=== PATIENT | female | born 1985 | race Two or more races ===

== ENCOUNTER 2022-12-11 19:23 | Emergency (ER) | payer OTHER, SELFPAY ==
--- NOTE | ~2022-12-11 | US_ITS ---
EXAMINATION: US ABDOMEN LIMITED CLINICAL INFORMATION: Epigastric/right upper quadrant tenderness. Elevated lipase/amylase.. COMPARISON: None available. TECHNIQUE: Real-time imaging of the right upper quadrant abdominal viscera. FINDINGS: PANCREAS: Normal. LIVER: The liver is normal in size. The liver contour is normal. There is diffuse increased liver parenchymal echogenicity, consistent with hepatic steatosis. No focal hepatic lesion. There is no intrahepatic biliary duct dilatation seen. GALLBLADDER: Normal. The gallbladder is physiologically distended without evidence of stones, sludge, polyps, wall thickening or pericholecystic fluid. COMMON BILE DUCT: Normal in caliber measuring 0.3 cm in diameter. RIGHT KIDNEY: Normal. No hydronephrosis. No renal calculi or focal parenchymal lesions. The kidney measures 9.6 cm in maximum dimension. FREE FLUID: None. US/US abdomen limited IMPRESSION: Hepatic steatosis. Otherwise unremarkable right upper quadrant ultrasound.
[2022-12-11 20:40] VITALS: BP 126/84; PULSE 67; RESP 18; TEMP 36.6; O2SAT 100; BMI 32.6
--- NOTE | 2022-12-11 20:41 | ED.ABDPAIN ---
HPI - Abdominal Pain General Chief Complaint: Nausea/Vomiting/Diarrhea <DARRIUS Hargrove - Last Filed: 12/11/22 20:48> Stated Complaint: abd pain/ vomiting <DARRIUS Hargrove - Last Filed: 12/11/22 20:48> Time Seen by Provider: 12/12/22 01:32 <DARRIUS Hargrove - Last Filed: 12/11/22 20:48> Source: patient <Tai Cuevas MD - Last Filed: 12/12/22 02:00> Mode of arrival: ambulatory <Tai Cuevas MD - Last Filed: 12/12/22 02:00> Limitations: no limitations <Tai Cuevas MD - Last Filed: 12/12/22 02:00> History of Present Illness HPI narrative: 37-year-old female presents with upper abdominal pain. The symptoms have been going on for least 2 months. She does have a history of IBS. Patient describes symptoms as moderate most the time but more severe over the past week. There is no clear relieving or exacerbating features. Can be associated with nausea but no vomiting. She denies any diarrhea constipation. She denies any urinary frequency, urgency or dysuria. She denies . She denies any vaginal bleeding or discharge. Currently, pain is controlled. She described as crampy and achy in nature. Which showed. Department for follow-up. She has a follow-up appointment with consultation for GI on Wednesday <Tai Cuevas MD - Last Filed: 12/12/22 02:00> Related Data Home Medications: Previous Rx's Medication Instructions Recorded dicyclomine 20 mg tablet 20 mg PO QID PRN abdominal 12/12/22 discomfort #14 tabs ondansetron 4 mg disintegrating 4 mg PO Q8H PRN nausea and 12/12/22 tablet vomiting #10 tabs <DARRIUS Hargrove - Last Filed: 12/11/22 20:48> Allergies/Adverse Reactions: Allergies Allergy/AdvReac Type Severity Reaction Status Date / Time No Known Allergies Allergy Verified 12/11/22 20:45 [NO KNOWN ALLERGIES] tramadol AdvReac Unknown nausea and Verified 08/24/18 00:00 vomiting <DARRIUS Hargrove Last Filed: 12/11/22 20:48> [facility] Social History Social History: Social History Advance Directives: No Advance Directives Information Provided: No <DARRIUS Hargrove - Last Filed: 12/11/22 20:48> Physical Exam ED Vital Signs: Vital Signs - 24 hr 12/11/22 20:40 12/12/22 01:19 Temperature 97.8 F 97.9 F Pulse Rate 67 73 Respiratory Rate 18 16 Blood Pressure 126/84 116/60 Pulse Oximetry 100 99 Oxygen Delivery Method Room Air Room Air BMI result Body Mass Index 32.6 <DARRIUS Hargrove - Last Filed: 12/11/22 20:48> Vital Signs - 24 hr 12/11/22 20:40 12/12/22 01:19 Temperature 97.8 F 97.9 F Pulse Rate 67 73 Respiratory Rate 18 16 Blood Pressure 126/84 116/60 Pulse Oximetry 100 99 Oxygen Delivery Method Room Air Room Air BMI result Body Mass Index 32.6 <Tai Cuevas MD - Last Filed: 12/12/22 02:00> GEN: Well developed, no acute distress, alert, oriented HEENT: Normocephalic, atraumatic, normal external ears, nose appears normal, no oropharyngeal edema or exudates Eyes: Normal to appearance Neck: Supple, no lymphadenopathy Respiratory: Talks in complete sentences, no respiratory distress, clear to auscultation bilaterally Cardiovascular: Regular rate and rhythm, no murmurs rubs or gallops Abdomen: Soft, nontender, nondistended, no guarding, no rebound Back: No CVA tenderness Extremities: No clubbing cyanosis or edema Neurologic: No focal neurologic deficits, cranial nerves 2-12 intact, strength is 5/5 bilaterally, gait normal Skin: No rash <Tai Cuevas MD - Last Filed: 12/12/22 02:00> Course Course Course Narrative: RME--37yo F w/PMHx IBS presenting to the ED sent in by PCP for elevated amylase/lipase on outpatient labs today. Patient reports epigastric abdominal pain, nausea, and vomiting intermittently x1 month On exam abdomen soft with epigastric/RUQ tenderness, no rebound or guarding Labs, UA, ultrasound ordered <DARRIUS Hargrove - Last Filed: 12/11/22 20:48> Reevaluation(s) Reevaluation #1: To workup is complete. Ultrasound showed hepatic steatosis. There is no significant hepatic or pancreatic abnormalities. Patient's pain is controlled at this time. Will provide patient with Zofran. Will prescribe dicyclomine and Zofran as well. She has follow-up with GI in for 5 days. Patient was given instructions when to return to the emergency department. <Tai Cuevas MD - Last Filed: 12/12/22 02:00> Time: 01:59 <Tai Cuevas MD - Last Filed: 12/12/22 02:00> Medical Decision Making Medical Decision Making MDM Narrative: 37-year-old female presents with abdominal pain. Her examination is benign. She does have a history of IBS but her symptoms have been worse over the past week. Patient will have an ultrasound, laboratory analysis in the re-evaluation. <Tai Cuevas MD - Last Filed: 12/12/22 02:00> Differential Diagnosis Differential Diagnoses: The differential diagnosis associated with the presentation includes (IBS, IBD, gastritis, peptic ulcer, gastric ulcer, colitis, diverticulitis, biliary colic, renal colic) <Tai Cuevas MD - Last Filed: 12/12/22 02:00> Abdominal pain <Tai Cuevas MD - Last Filed: 12/12/22 02:00> Admission/Observation Consideration of admission/observation: Escalation of care including admission/observation considered <Tai Cuevas MD - Last Filed: 12/12/22 02:00> Lab Data [facility] Lab Attestation statement: I reviewed the patient's lab results. <Tai Cuevas MD - Last Filed: 12/12/22 02:00> Result Diagrams: 12/11/22 21:03 12/11/22 21:03 <DARRIUS Hargrove - Last Filed: 12/11/22 20:48> Labs: Lab Results 12/11/22 12/11/22 12/11/22 Range/Units 21:03 21:03 22:51 WBC 7.8 (4.8-10.8) X10*3/uL RBC 4.51 (4.20-5.50) X10*6/uL Hgb 12.7 (12.0-16.0) g/dl Hct 38.1 (37.0-47.0) % MCV 84.5 (80.0-98.0) fL MCH 28.2 (27.0-33.0) pg MCHC 33.3 (31.0-35.0) g/dl RDW 13.5 (11.0-16.0) % Plt Count 320 (160-400) X10*3/uL MPV 8.9 L (9.4-12.3) fL Immature Gran % (Auto) 0.1 (0.0-0.4) % Neut % (Auto) 67.1 (45-73) % Lymph % (Auto) 24.6 (20-40) % [place] % (Auto) 7.0 (2-11) % Eos % (Auto) 0.9 (0-4) % Baso % (Auto) 0.3 (0-2) % Lymph # (Auto) 1.9 (1.2-4.9) X10*3/uL [place] # (Auto) 0.5 (0.1-1.2) X10*3/uL Eos # (Auto) 0.1 (0.0-0.4) X10*3/uL Baso # (Auto) 0.0 (0.0-0.2) X10*3/uL Abs Immat Gran (auto) 0.01 (0.00-0.03) X10*3/uL Absolute Neuts (auto) 5.2 (2.0-8.3) x10*3/uL Absolute Nucleated RBC 0.000 (0.0-0.012) X10*3/uL Nucleated RBC % (auto) 0.0 (0.0-0.2) /100WBC Sodium 139 (135-145) mmol/L Potassium 4.4 (3.3-5.1) mmol/L Chloride 106 (96-108) mmol/L Carbon Dioxide 25 (22-29) mmol/L Anion Gap 12 (12-20) BUN 13 (9-16) mg/dL Creatinine 0.92 (0.5-1.4) mg/dL Estim Creat Clear Calc 80.9 Estimated GFR > 60 Random Glucose 91 (60-115) mg/dL Calcium 9.4 (8.4-10.2) mg/dL Total Bilirubin 0.4 (0.0-1.0) mg/dL Direct Bilirubin < 0.2 (0.0-0.5) mg/dL AST 18 (5-31) U/L ALT 8 (0-31) U/L Alkaline Phosphatase 46 (39-117) U/L Total Protein 8.0 (6.5-8.0) g/dL Albumin 4.5 (3.5-5.0) g/dL Lipase 34 (8-78) U/L Urine Color Yellow Urine Appearance Clear Urine pH 5.5 (5.0-9.0) Ur Specific [place] >= 1.030 H (1.005-1.025) Urine Protein Negative (Neg-Trace) mg/dL Urine Glucose (UA) Negative (Negative) mg/dL Urine Ketones Trace (Negative) mg/dL Urine Blood Negative (Negative) Urine Nitrite Negative (Negative) Ur Leukocyte Esterase Small (1+) H (Negative) Urine RBC 0-2 (0-2) /HPF Urine WBC 6-10 H (0-5) /HPF Ur Squamous Epith Cells 3-5 (0-2) /HPF Urine Bacteria 1+ (None Seen) Hyaline Casts 0-2 (0-2) /LPF Urine Test (NEGATIVE) 12/11/22 Range/Units 22:51 WBC (4.8-10.8) X10*3/uL RBC (4.20-5.50) X10*6/uL Hgb (12.0-16.0) g/dl Hct (37.0-47.0) % MCV (80.0-98.0) fL MCH (27.0-33.0) pg MCHC (31.0-35.0) g/dl RDW (11.0-16.0) % Plt Count (160-400) X10*3/uL MPV (9.4-12.3) fL Immature Gran % (Auto) (0.0-0.4) % Neut % (Auto) (45-73) % Lymph % (Auto) (20-40) % [place] % (Auto) (2-11) % Eos % (Auto) (0-4) % Baso % (Auto) (0-2) % Lymph # (Auto) (1.2-4.9) X10*3/uL [place] # (Auto) (0.1-1.2) X10*3/uL Eos # (Auto) (0.0-0.4) X10*3/uL Baso # (Auto) (0.0-0.2) X10*3/uL Abs Immat Gran (auto) (0.00-0.03) X10*3/uL Absolute Neuts (auto) (2.0-8.3) x10*3/uL Absolute Nucleated RBC (0.0-0.012) X10*3/uL Nucleated RBC % (auto) (0.0-0.2) /100WBC Sodium (135-145) mmol/L Potassium (3.3-5.1) mmol/L Chloride (96-108) mmol/L Carbon Dioxide (22-29) mmol/L Anion Gap (12-20) BUN (9-16) mg/dL Creatinine (0.5-1.4) mg/dL Estim Creat Clear Calc Estimated GFR Random Glucose (60-115) mg/dL Calcium (8.4-10.2) mg/dL Total Bilirubin (0.0-1.0) mg/dL Direct Bilirubin (0.0-0.5) mg/dL AST (5-31) U/L ALT (0-31) U/L Alkaline Phosphatase (39-117) U/L Total Protein (6.5-8.0) g/dL Albumin (3.5-5.0) g/dL Lipase (8-78) U/L Urine Color Urine Appearance Urine pH (5.0-9.0) Ur Specific [place] (1.005-1.025) Urine Protein (Neg-Trace) mg/dL Urine Glucose (UA) (Negative) mg/dL Urine Ketones (Negative) mg/dL Urine Blood (Negative) Urine Nitrite (Negative) Ur Leukocyte Esterase (Negative) Urine RBC (0-2) /HPF Urine WBC (0-5) /HPF Ur Squamous Epith Cells (0-2) /HPF Urine Bacteria (None Seen) Hyaline Casts (0-2) /LPF Urine Test NEGATIVE (NEGATIVE) <DARRIUS Hargrove - Last Filed: 12/11/22 20:48> Lab Results 12/11/22 12/11/22 12/11/22 Range/Units 21:03 21:03 22:51 WBC 7.8 (4.8-10.8) X10*3/uL RBC 4.51 (4.20-5.50) X10*6/uL Hgb 12.7 (12.0-16.0) g/dl Hct 38.1 (37.0-47.0) % MCV 84.5 (80.0-98.0) fL MCH 28.2 (27.0-33.0) pg MCHC 33.3 (31.0-35.0) g/dl RDW 13.5 (11.0-16.0) % Plt Count 320 (160-400) X10*3/uL MPV 8.9 L (9.4-12.3) fL Immature Gran % (Auto) 0.1 (0.0-0.4) % Neut % (Auto) 67.1 (45-73) % Lymph % (Auto) 24.6 (20-40) % [place] % (Auto) 7.0 (2-11) % Eos % (Auto) 0.9 (0-4) % Baso % (Auto) 0.3 (0-2) % Lymph # (Auto) 1.9 (1.2-4.9) X10*3/uL [place] # (Auto) 0.5 (0.1-1.2) X10*3/uL Eos # (Auto) 0.1 (0.0-0.4) X10*3/uL Baso # (Auto) 0.0 (0.0-0.2) X10*3/uL Abs Immat Gran (auto) 0.01 (0.00-0.03) X10*3/uL Absolute Neuts (auto) 5.2 (2.0-8.3) x10*3/uL Absolute Nucleated RBC 0.000 (0.0-0.012) X10*3/uL Nucleated RBC % (auto) 0.0 (0.0-0.2) /100WBC Sodium 139 (135-145) mmol/L Potassium 4.4 (3.3-5.1) mmol/L Chloride 106 (96-108) mmol/L Carbon Dioxide 25 (22-29) mmol/L Anion Gap 12 (12-20) BUN 13 (9-16) mg/dL Creatinine 0.92 (0.5-1.4) mg/dL Estim Creat Clear Calc 80.9 Estimated GFR > 60 Random Glucose 91 (60-115) mg/dL Calcium 9.4 (8.4-10.2) mg/dL Total Bilirubin 0.4 (0.0-1.0) mg/dL Direct Bilirubin < 0.2 (0.0-0.5) mg/dL AST 18 (5-31) U/L ALT 8 (0-31) U/L Alkaline Phosphatase 46 (39-117) U/L Total Protein 8.0 (6.5-8.0) g/dL Albumin 4.5 (3.5-5.0) g/dL Lipase 34 (8-78) U/L Urine Color Yellow Urine Appearance Clear Urine pH 5.5 (5.0-9.0) Ur Specific [place] >= 1.030 H (1.005-1.025) Urine Protein Negative (Neg-Trace) mg/dL Urine Glucose (UA) Negative (Negative) mg/dL Urine Ketones Trace (Negative) mg/dL Urine Blood Negative (Negative) Urine Nitrite Negative (Negative) Ur Leukocyte Esterase Small (1+) H (Negative) Urine RBC 0-2 (0-2) /HPF Urine WBC 6-10 H (0-5) /HPF Ur Squamous Epith Cells 3-5 (0-2) /HPF Urine Bacteria 1+ (None Seen) Hyaline Casts 0-2 (0-2) /LPF Urine Test (NEGATIVE) 12/11/22 Range/Units 22:51 WBC (4.8-10.8) X10*3/uL RBC (4.20-5.50) X10*6/uL Hgb (12.0-16.0) g/dl Hct (37.0-47.0) % MCV (80.0-98.0) fL MCH (27.0-33.0) pg MCHC (31.0-35.0) g/dl RDW (11.0-16.0) % Plt Count (160-400) X10*3/uL MPV (9.4-12.3) fL Immature Gran % (Auto) (0.0-0.4) % Neut % (Auto) (45-73) % Lymph % (Auto) (20-40) % [place] % (Auto) (2-11) % Eos % (Auto) (0-4) % Baso % (Auto) (0-2) % Lymph # (Auto) (1.2-4.9) X10*3/uL [place] # (Auto) (0.1-1.2) X10*3/uL Eos # (Auto) (0.0-0.4) X10*3/uL Baso # (Auto) (0.0-0.2) X10*3/uL Abs Immat Gran (auto) (0.00-0.03) X10*3/uL Absolute Neuts (auto) (2.0-8.3) x10*3/uL Absolute Nucleated RBC (0.0-0.012) X10*3/uL Nucleated RBC % (auto) (0.0-0.2) /100WBC Sodium (135-145) mmol/L Potassium (3.3-5.1) mmol/L Chloride (96-108) mmol/L Carbon Dioxide (22-29) mmol/L Anion Gap (12-20) BUN (9-16) mg/dL Creatinine (0.5-1.4) mg/dL Estim Creat Clear Calc Estimated GFR Random Glucose (60-115) mg/dL Calcium (8.4-10.2) mg/dL Total Bilirubin (0.0-1.0) mg/dL Direct Bilirubin (0.0-0.5) mg/dL AST (5-31) U/L ALT (0-31) U/L Alkaline Phosphatase (39-117) U/L Total Protein (6.5-8.0) g/dL Albumin (3.5-5.0) g/dL Lipase (8-78) U/L Urine Color Urine Appearance Urine pH (5.0-9.0) Ur Specific [place] (1.005-1.025) Urine Protein (Neg-Trace) mg/dL Urine Glucose (UA) (Negative) mg/dL Urine Ketones (Negative) mg/dL Urine Blood (Negative) Urine Nitrite (Negative) Ur Leukocyte Esterase (Negative) Urine RBC (0-2) /HPF Urine WBC (0-5) /HPF Ur Squamous Epith Cells (0-2) /HPF Urine Bacteria (None Seen) Hyaline Casts (0-2) /LPF Urine Test NEGATIVE (NEGATIVE) <Tai Cuevas MD - Last Filed: 12/12/22 02:00> Radiology Impression Discussion of test interpretation with radiology: I have reviewed the radiologist's reading. ( US/US abdomen limited IMPRESSION: Hepatic steatosis. Otherwise unremarkable right upper quadrant ultrasound. Dictated By:Go Lehman MDSigned By:<Electronically signed by Go Lehman MD in [place]>12/11/[id number] DD/ [id number]/TT: Unit Aide Tech: JORGE) <Tai Cuevas MD - Last Filed: 12/12/22 02:00> Prescription Management I considered prescription management with: Pain Medication <Tai Cuevas MD - Last Filed: 12/12/22 02:00> Chronic Conditions Patient?s care impacted by: Other (IBS) <Tai Cuevas MD - Last Filed: 12/12/22 02:00> Discharge Plan Discharge Clinical Impression: Abdominal pain <DARRIUS Hargrove - Last Filed: 12/11/22 20:48> Patient Disposition: Home, Self-Care <DARRIUS Hargrove - Last Filed: 12/11/22 20:48> Instructions: Irritable Bowel Syndrome (ED), Non-Alcoholic Fatty Liver Disease (ED), Abdominal Pain (ED) <DARRIUS Hargrove - Last Filed: 12/11/22 20:48> Prescriptions: New ondansetron 4 mg tablet,disintegrating 4 mg PO Q8H PRN (Reason: nausea and vomiting) Qty: 10 0RF dicyclomine 20 mg tablet 20 mg PO QID PRN (Reason: abdominal discomfort) Qty: 14 0RF <DARRIUS Hargrove - Last Filed: 12/11/22 20:48> Referrals: Louie Blackburn III, MD [Primary Care Provider] - 5 days <DARRIUS Hargrove - Last Filed: 12/11/22 20:48>
--- NOTE | 2022-12-11 21:05 | MHC.EDTECH ---
PT BLOOD DRAWN AND SENT TO LAB .
[2022-12-11 21:06] LABS: MANUAL DIFF FLAG NO
[2022-12-11 21:18] LABS: Basophils Percent Auto 0.3 % (0-2); Eosinophils Absolute Auto 0.1 X10*3/uL (0.0-0.4); Eosinophils Percent Auto 0.9 % (0-4); Hematocrit 38.1 % (37.0-47.0); Hemoglobin 12.7 g/dl (12.0-16.0); Imm Gran Abs Auto 0.01 X10*3/uL (0.00-0.03); Imm Gran Pct Auto 0.1 % (0.0-0.4); Lymphocytes Absolute Auto 1.9 X10*3/uL (1.2-4.9); Lymphocytes Percent Auto 24.6 % (20-40); Mean Corpuscular HGB Conc 33.3 g/dl (31.0-35.0); Mean Corpuscular Hemoglobin 28.2 pg (27.0-33.0); Mean Corpuscular Volume 84.5 fL (80.0-98.0); Mean Platelet Volume 8.9 fL (9.4-12.3); Monocytes Absolute Auto 0.5 X10*3/uL (0.1-1.2); Neutrophils Absolute Auto 5.2 x10*3/uL (2.0-8.3); Neutrophils Percent Auto 67.1 % (45-73); Platelet Count 320 X10*3/uL (160-400); Red Blood Count 4.51 X10*6/uL (4.20-5.50); Red Cell Distribution Width 13.5 % (11.0-16.0); White Blood Count 7.8 X10*3/uL (4.8-10.8)
[2022-12-11 21:42] LABS: Alanine Aminotransferase 8 U/L (0-31); Albumin Level 4.5 g/dL (3.5-5.0); Alkaline Phosphatase 46 U/L (39-117); Anion Gap 12 (12-20); Aspartate Amino Transferase 18 U/L (5-31); Bilirubin Direct < 0.2 mg/dL (0.0-0.5); Bilirubin Total 0.4 mg/dL (0.0-1.0); Blood Urea Nitrogen 13 mg/dL (9-16); Calcium 9.4 mg/dL (8.4-10.2); Carbon Dioxide 25 mmol/L (22-29); Chloride 106 mmol/L (96-108); Creatinine Clr Calc Pharmacy 80.9; Estimated Glomerular Filt Rate > 60; Glucose Random 91 mg/dL (60-115); Lipase 34 U/L (8-78); Potassium 4.4 mmol/L (3.3-5.1); Sodium 139 mmol/L (135-145)
--- NOTE | 2022-12-11 22:52 | MHC.EDTECH ---
PT URINE SAMPLE COLLECTED AND SENT TO LAB .
[2022-12-11 23:00] LABS: Appearance Urine Clear; Color Urine Yellow; Glucose Urine UA Negative (Negative); Leukocyte Esterase Urine Small (1+) (Negative); Nitrite Urine Negative (Negative); PH 5.5 (5.0-9.0); Specific Gravity - Urine >= 1.030 (1.005-1.025); UMIC TRIGGER UACC YES; Urine Blood Negative (Negative); Urine Ketones Trace mg/dL (Negative); Urine Protein Negative (Neg-Trace)
[2022-12-11 23:02] LABS: UPreg QC Valid YES; Urine Pregnancy NEGATIVE (NEGATIVE)
[2022-12-11 23:05] LABS: Bacteria Urine 1+ (None Seen); Hyaline Casts Urine 0-2 /LPF (0-2); RBC Urine 0-2 /HPF (0-2); UACC Culture Trigger YES
[2022-12-12 01:19] VITALS: BP 116/60; PULSE 73; RESP 16; TEMP 36.6; O2SAT 99
[2022-12-12] MEDS: Ondansetron ODT 4 MG TAB.RAPDIS TRANSLINGU (02:07)
== END 2022-12-12 02:10 | disposition home or self-care (01) ==
PROVIDERS: Physician Assistant; Emergency Provider Emergency Medicine; PCP Internal Medicine
DX: R10.13 Epigastric pain (principal); R11.2 Nausea with vomiting, unspecified; Z79.899 Other long term (current) drug therapy
CPT/HCPCS: 36415; 76705; 80048; 80076; 81001; 81003; 81025; 83690; 85025; 87086; 99284